=== PATIENT | male | born 1995 | race African-American/Black ===

== ENCOUNTER 2018-08-20 19:42 | Emergency (ER) | payer SELFPAY ==
[~2018-08-20] VITALS: Ht 175.3 cm; Wt 61.2 kg
[2018-08-20] MEDS ORDERED: POVIDONE-IODINE 10% TOPICAL SOLN 240ML TOP ONE (22:15)
[2018-08-20] MEDS ORDERED: BACITRACIN ZINC OINT UDPKT TOP ONE (22:15)
[2018-08-20] MEDS ORDERED: HYDROCODONE/ACETAMINOPHEN 5/325MG TABLET PO ONE (22:15)
[2018-08-20] MEDS ORDERED: LIDOCAINE HCL/EPINEPHRINE 1%-EPI 1:100,000 20 ML VIAL INFIL ONE (22:15)
[2018-08-20] MEDS ORDERED: TETANUS, DIPHTHERIA, PERTUSSIS VAC/PF 0.5ML (>7YR OLD) IM ONE (22:15)
[2018-08-20 23:34] VITALS: BP 125/66
== END 2018-08-20 23:35 | disposition home or self-care (01) ==
LOC: ER 20:05
DX: S51.811A Laceration without foreign body of right forearm, initial encounter (principal); F12.10 Cannabis abuse, uncomplicated; W26.8XXA Contact with other sharp object(s), not elsewhere classified, initial encounter; Y93.89 Activity, other specified; Y92.89 Other specified places as the place of occurrence of the external cause; Y99.8 Other external cause status
CPT/HCPCS: 12002; 90471; 90715; 99284; A4246; J3490

== ENCOUNTER 2018-08-28 11:41 | Emergency (ER) | payer SELFPAY ==
[~2018-08-28] VITALS: Ht 172.7 cm; Wt 59.0 kg
[2018-08-28 11:57] VITALS: BP 113/71
== END 2018-08-28 15:32 | disposition home or self-care (01) ==
LOC: ER 11:41
DX: Z48.00 Encounter for change or removal of nonsurgical wound dressing (principal); F12.90 Cannabis use, unspecified, uncomplicated
CPT/HCPCS: 99281

== ENCOUNTER 2018-09-04 11:59 | Emergency (ER) | payer SELFPAY ==
[~2018-09-04] VITALS: Ht 172.7 cm; Wt 57.0 kg
[2018-09-04 12:21] VITALS: BP 115/69
== END 2018-09-04 13:18 | disposition home or self-care (01) ==
LOC: ER 11:59
DX: Z48.02 Encounter for removal of sutures (principal)
CPT/HCPCS: 99282

== ENCOUNTER 2022-11-27 17:02 | Emergency (ER) | payer SELFPAY ==
[~2022-11-27] VITALS: Ht 175.3 cm; Wt 54.0 kg
[2022-11-27] MEDS ORDERED: IBUPROFEN 600MG TABLET PO ONE (18:15)
[2022-11-27] MEDS ORDERED: CYCL5TAB MT (18:31)
[2022-11-27] MEDS ORDERED: IBUP-2029 MT (18:31)
[2022-11-27 19:13] VITALS: BP 111/76
== END 2022-11-27 19:14 | disposition home or self-care (01) ==
LOC: ER 17:02
DX: R07.89 Other chest pain (principal); R10.9 Unspecified abdominal pain; F12.90 Cannabis use, unspecified, uncomplicated; V49.9XXA Car occupant (driver) (passenger) injured in unspecified traffic accident, initial encounter; Y93.89 Activity, other specified; Y92.89 Other specified places as the place of occurrence of the external cause; Y99.8 Other external cause status
CPT/HCPCS: 99283

== ENCOUNTER 2024-06-17 13:00 | Emergency (ER) | payer SELFPAY ==
[~2024-06-17] VITALS: Ht 172.7 cm; Wt 60.0 kg
[~2024-06-17 13:00] MED LIST: CYCL5TAB3 MT; IBUP-2029 MT
[2024-06-17 13:07] VITALS: O2SAT 100
[2024-06-17] MEDS ORDERED: ACETAMINOPHEN 325MG TABLET PO ONE (13:15)
[2024-06-17 14:43] LABS: CHLORIDE 107 mEq/L (98-107); POTASSIUM 3.8 mEq/L (3.5-5.1); SODIUM 140 mEq/L (136-145)
[2024-06-17 14:44] LABS: CALCIUM 9.8 mg/dL (8.7-10.4); CARBON DIOXIDE 26 mEq/L (21-32)
[2024-06-17 14:49] LABS: CREATININE 0.9 mg/dL (0.6-1.3); GLUCOSE 93 mg/dL (70-105); UREA NITROGEN BLOOD 9 mg/dL (9-23)
[2024-06-17 14:51] LABS: ALANINE AMINOTRANSFERASE 13 IU/L (10-49); ASPARTATE AMINOTRANSFERASE 21 IU/L (<34); BILIRUBIN DIRECT 0.6 mg/dL (<=3.0); BILIRUBIN TOTAL 1.8 mg/dL (0.1-1.0); PROTEIN TOTAL 7.6 g/dL (6.0-8.3)
[2024-06-17] MEDS: ACETAMINOPHEN 325MG TABLET PO NR (15:00)
[2024-06-17 15:42] LABS: HEMATOCRIT. 42.5 % (42.0-52.0); MEAN CORPUSCULAR HEMOGLOBIN 23.6 pg (28.0-32.0); MEAN CORPUSCULAR HGB CONC 30.7 g/dL (31.0-37.0); MEAN CORPUSCULAR VOLUME 76.8 fL (80.0-94.0); MEAN PLATELET VOLUME 9.5 fl (7.4-10.4); PLATELET 259 x1000/uL (130-400); RED BLOOD CELL COUNT 5.53 mill/uL (4.7-6.1)
[2024-06-17 15:46] LABS: DIFFERENTIAL COMMENT 1
[2024-06-17 16:16] VITALS: BP 109/55; PULSE 75; RESP 18; TEMP 36.66960; O2SAT 100
[2024-06-17 17:43] LABS: ANISOCYTOSIS 1+; HYPOCHROMASIA 1+; MICROCYTOSIS 1+; PLATELET ESTIMATE NORMAL
== END 2024-06-17 16:32 | disposition home or self-care (01) ==
LOC: ER 13:00
DX: R19.5 Other fecal abnormalities (principal); F12.90 Cannabis use, unspecified, uncomplicated
CPT/HCPCS: 36415; 80048; 80076; 85025; 99283